=== PATIENT | male | born 1935 | race African-American/Black ===

== ENCOUNTER 2016-10-23 13:24 | Outpatient (CLI) | payer MEDICARE ==
[2016-10-23 21:48] LABS: Blood, Urine Moderate (Negative); Glucose, Urine (Dipstick) Negative (Negative); Leukocyte Small (Negative); Nitrite Negative (Negative); Protein, Urine (Dipstick) > or equal to 300 mg/dL (Neg-Trace); Urobilinogen 0.2 mg/dL (0.2-1.0); pH, Urine 5.5 (5.0-9.0)
[2016-10-23 21:52] LABS: Clarity Cloudy (Clear)
[2016-10-23 22:10] LABS: Bacteria/HPF 2+ HPF (None Seen)
== END 2016-10-23 13:25 | disposition home or self-care (01) ==
LOC: NAV LABSP 13:24
PROVIDERS: ATTEND Urology
DX: E11.22 Type 2 diabetes mellitus with diabetic chronic kidney disease (principal); N39.0 Urinary tract infection, site not specified
CPT/HCPCS: 81001; 87086